=== PATIENT | female | born 1985 | race Caucasian/White ===

== ENCOUNTER 2019-06-11 07:59 | Outpatient (CLI) | payer OTHER ==
--- NOTE | 2019-06-11 09:23 | MRI ---
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 COMPARISON: None. FINDINGS: No evidence of infarct, hemorrhage, midline shift, or abnormal extraaxial fluid collections is seen. No restricted diffusion is noted. No abnormal postcontrast enhancement is seen. No blood products are noted on the highly sensitive FLAIR images. IMPRESSION: No evidence of acute intracranial process or mass. POS: [facility]
== END 2019-06-11 08:00 | disposition home or self-care (01) ==
LOC: SCSMRI 07:59
PROVIDERS: ATTEND Psychiatry & Neurology Neurology
DX: G61.0 Guillain-Barre syndrome (principal)
CPT/HCPCS: 70553

== ENCOUNTER 2019-10-28 17:30 | Outpatient (CLI) | payer OTHER | END 2019-10-28 17:31 | disposition home or self-care (01) | LOC: SLEEPLAB 17:30 | PROVIDERS: ATTEND Family Medicine | DX: G47.33 Obstructive sleep apnea (adult) (pediatric) (principal); G47.00 Insomnia, unspecified; R53.83 Other fatigue; F41.8 Other specified anxiety disorders; E66.9 Obesity, unspecified; R06.83 Snoring; G47.31 Primary central sleep apnea; Z68.29 Body mass index [BMI] 29.0-29.9, adult | CPT/HCPCS: 95806 ==

== ENCOUNTER → 2020-02-24 | Outpatient (CLI) | payer OTHER | LOC: SLEEPLAB 19:30 | PROVIDERS: ATTEND Family Medicine | DX: G47.33 Obstructive sleep apnea (adult) (pediatric) (principal); G47.00 Insomnia, unspecified; R53.83 Other fatigue; E66.9 Obesity, unspecified; F41.9 Anxiety disorder, unspecified; F32.9 Major depressive disorder, single episode, unspecified | CPT/HCPCS: 95811 ==